=== PATIENT | male | born 1975 | race Caucasian/White ===

== ENCOUNTER 2021-09-11 12:27 | Outpatient (CLI) | payer OTHER, SELFPAY | END 2021-09-11 12:28 | disposition home or self-care (01) | LOC: ANHSURGERY 12:29 | PROVIDERS: PCP Family Medicine; Visit Provider Surgery | DX: K42.9 Umbilical hernia without obstruction or gangrene (principal); Z01.818 Encounter for other preprocedural examination | CPT/HCPCS: 36415; 86850; 86900; 86901 ==

== ENCOUNTER 2021-09-15 01:32 | Day surgery (SDC) | payer OTHER, SELFPAY ==
[2021-09-09 15:08] VITALS: BMI 26.0
--- NOTE | 2021-09-09 15:31 | PC.NURSE ---
Report to the Outpatient Waiting Room, entrance under the green pavilion located off [facility], at time 6:00 on date 09/15/21. OR Time: 7:30. - You and your visitor will be asked a series of questions to screen for COVID 19 for your protection. - A mask is required within the hospital. - Only one visitor is allowed at this time. Patient visitors will be guided where to wait when not with patient. Preoperative COVID Testing Requirements: No COVID Test needed if: (proof is required; if not received patient will have Rapid Test prior to entry) - Patient has received COVID Vaccine at least 14 days prior to procedure date or - Patient has positive COVID test result within last 90 days of surgery date. COVID Test needed if above criteria is not met If not COVID vaccinated a COVID test must be conducted within 72 hours of surgery and patient is asked to isolate self from time of testing until procedure. You will go to the [facility] for your COVID testing. The [facility] is located at the corner of [address] [facility]. You will only be called if COVID results are positive and your surgeon may reschedule your elective surgery date. Patients may have clear liquids (water, carbonated beverages, clear teas, apple juice) until 3 hours prior to surgery with a maximum of 20 ounces. - No food from midnight until time of surgery - Infants may have breast milk until 4 hours before surgery, formula 6 hours prior to surgery. - Children will be allowed to drink immediately following surgery. If applicable, please bring a bottle or sippy cup to assist with drinking. Juice, water, soda, and popsicles are readily available. For infants on formula, please bring formula the day of surgery. Pacifiers are allowed. Take the following medications with a SIP of water the morning of surgery: N/A Medications to discontinue per physician VITAMINS/SUPPLEMENTS Date to take last dose: 3 DAYS PRE-OP Please no make-up, nail amharic, hairspray, perfume, deodorant, or body powder the day of surgery. No jewelry (including any body piercings) or valuables the day of surgery, leave them at home. Please take a shower or bath the night before, or the morning of, surgery with an antibacterial soap. Wear comfortable, loose fitting clothing. Children are encouraged to wear pajamas. HIBICLENS SHOWER - Jewelry must be removed prior to entering the operating room. Rings and piercings that are not removed may be cut off. - The hospital will not accept responsibility for valuables. - Please leave all valuables, including medications, at home the day of surgery. If you are going home after surgery, a licensed clark driver must drive you home. - NO public transportation without another adult. - We recommend that an adult stay with you for 24 hours following discharge. - We also recommend that you do not drive, make important decision, drink alcoholic beverages, or take any drugs that were not prescribed by your health care provider for at least 24 hours after your discharge time. For Pediatric surgeries, we recommend two adults accompany the child home (only one inside the building at this time). Follow any additional instructions given to you from your surgeon. Telephone instructions given to NETTIE HDZ and asked if any additional questions and then verbalized understanding. Patient advised to call surgeon office or pre surgery nurse liaison [phone] if any additional questions.
[2021-09-15] VITALS (7 sets, daily range): BP systolic 127–149; BP diastolic 69–87; PULSE 38–50; RESP 10–16; TEMP 36.1–36.2; O2SAT 98–100
--- NOTE | 2021-09-15 07:04 | PM.HPGS ---
History of Present Illness History of Present Illness Consent: Risks, benefits, and alternatives have been discussed and questions answered. Patient agrees to proceed with procedure. Chief complaint: Umbilical Hernia Narrative: Aldair Gay Jr. is a 46 year old male that recently presented to the office at the request of Dr Shetty for an evaluation of a umbilical hernia. Patient reports that he noticed bulging with occasional discomfort with some skin color changes for about the last 5 years. HE reports he has always had an outie umbilicus as long has he can recall but over time it has become larger. He reports he has lost some weight on purpose in the last year. He reports that he can reduce the hernia by routine constantly. He reports overall the hernia does not cause much of a problem other than he has known it is getting larger and would like to have this repaired before it becomes urgent. He reports he has never had any abdominal surgeries in the past. He reports that he does have BENIGNO that he uses a CPAP for. Review of Systems Constitutional: Constitutional: Reports no additional constitutional complaints, Reports fatigue and Denies malaise Eyes: Eyes: Denies change in vision and Denies loss of vision ENT: Reports Normal hearing present, Denies change in voice, Denies dizziness, Denies hoarseness and Denies sore throat Cardiovascular: Cardiovascular: Denies chest pain, Denies leg edema and Denies dyspnea Respiratory: Respiratory: Denies cough, Denies dyspnea and Denies wheezing Comments: Reports obstructive sleep apnea and does use CPAP at home. Gastrointestinal: Gastrointestinal: Denies hematochezia, Denies change in bowel habits and Denies heartburn Genitourinary: Genitourinary: Denies urinary frequency and Denies urinary incontinence Neurologic: Reports Normal hearing present, Denies confusion, Denies dizziness, Denies loss of vision, Denies memory loss and Denies seizure-like activity Psychiatric: Psychiatric: Denies confusion, Denies depression and Denies memory loss Endocrine: Endocrine: Denies cold intolerance and Reports fatigue Hematologic/Lymphatic: Hematologic/Lymphatic: Denies easy bleeding and Denies easy bruising Allergic/Immunologic: Allergic/Immunologic: Denies wheezing PMFSH Past Medical History Medical History Alopecia Anxiety Asthma BMI 27.0-27.9,adult Elevated cholesterol with high triglycerides Sleep apnea with use of continuous positive airway pressure (CPAP) Umbilical hernia without mention of obstruction or gangrene Family History Family History Mother Family history of anemia Father Family history of diabetes mellitus in first degree relative Other Carcinoma of colon Diabetes mellitus Family history of allergic disorder Family history of malignant neoplasm Hypertension Social History Social History Smoking status: Never smoker Alcohol intake: current Drinks per week: 4 Substance use: never Substance use type: does not use Living arrangements: with family 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 Spiritual care concerns: No Meds Home Medications and Allergies Home Medications Medication Instructions Recorded Confirmed Type finasteride 1 mg tablet 1 mg PO DAILY #90 tablet 06/11/21 09/09/21 Rx glucosamine-chondroitin 500 mg-400 1 tablet PO DAILY 07/24/21 09/09/21 History mg tablet multivitamin 1 tablet PO DAILY 07/24/21 09/09/21 History omega-3 fatty acids 1,000 mg 1,000 mg PO DAILY 07/24/21 09/09/21 History capsule Allergies Allergy/AdvReac Type Severity Reaction Status Date / Time ragweed pollen Allergy Unknown Unknown Verified 09/15/21 07:15 shellfish derived AdvReac Mild Nausea and Verified 09/15/21 07:15 Vomiting 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
--- NOTE | 2021-09-15 07:17 | P.PNAN_ITS ---
Anes - Initial Pre Proc Eval Procedure: Operation Date: 09/15/21 07:30 Proposed Procedures p Laparoscopic Umbilical Hernia Repair With Mesh - Supa Joseph MD Date/Time: 09/15/21 07:17 Surgeon: Supa Joseph MD Pre Op Diagnosis: Umbilical Hernia Patient Data Age: 46 Gender: M Height: 1.8 m Weight: 84.82 kg Allergies Allergy/AdvReac Type Severity Reaction Status Date / Time ragweed pollen Allergy Unknown Unknown Verified 09/15/21 07:15 shellfish derived AdvReac Mild Nausea and Verified 09/15/21 07:15 Vomiting Home Medications Medication Instructions Recorded Confirmed Type finasteride 1 mg tablet 1 mg PO DAILY #90 tablet 06/11/21 09/09/21 Rx glucosamine-chondroitin 500 mg-400 1 tablet PO DAILY 07/24/21 09/09/21 History mg tablet multivitamin 1 tablet PO DAILY 07/24/21 09/09/21 History omega-3 fatty acids 1,000 mg 1,000 mg PO DAILY 07/24/21 09/09/21 History capsule Patient hx anesthesia problems: none Family hx anesthesia problems: none Results Review: All pre-operative results and documents have been reviewed as part of the pre-operative evaluation. [facility] Past Medical History Medical History Alopecia Anxiety Asthma BMI 27.0-27.9,adult Elevated cholesterol with high triglycerides Sleep apnea with use of continuous positive airway pressure (CPAP) Umbilical hernia without mention of obstruction or gangrene Family History Family History Mother Family history of anemia Father Family history of diabetes mellitus in first degree relative Other Carcinoma of colon Diabetes mellitus Family history of allergic disorder Family history of malignant neoplasm Hypertension Social History Social History Smoking status: Never smoker Alcohol intake: current Drinks per week: 4 Substance use: never Substance use type: does not use Living arrangements: with family 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 Informed Consent: The patient's anesthetic plan and its attendant risks and benefits were discussed with the patient/family/POA. Questions were solicited and answers provided to the satisfaction of the patient/family/POA.
[2021-09-15] MEDS: KETOROLAC 15 MG/ML VIAL (*BKC) IV PUSH (07:20)
[2021-09-15] MEDS: LACTATED RINGERS 1,000 ML 30 ML IV CONT (07:20)
[2021-09-15] MEDS: ACETAMINOPHEN 500 MG TABLET 1000 MG PO (07:20)
--- NOTE | 2021-09-15 07:21 | WPDHPUPDATE1 ---
History and Physical Update Update Date/Time: 09/15/21 07:21 History and Physical has been reviewed, including an updated exam of the patient. There are NO changes in the patient's condition. Risks, benefits, and alternatives have been discussed and questions answered. Patient agrees to proceed with procedure.
[2021-09-15] MEDS: ceFAZolin 2 GM/D5W 50 ML 2 GM/50 ML BAG IVPB (07:26)
[2021-09-15] MEDS: LIDO 2%/EPINEPHRINE 1:100,000 20 ML VIAL INFILTRATE (07:28)
--- NOTE | 2021-09-15 09:27 | W.PM.PROC2 ---
Procedure Note - Detailed Date of Procedure 09/15/21 Pre-op Diagnosis Umbilical Hernia Post-op Diagnosis same Procedure Performed Laparoscopic umbilical hernia repair with mesh Surgeon Supa Joseph MD Pta Brooke ROBERTS, [place] assistant family teacher Anesthesia general Indications See admission H&P. The patient was having increasing discomfort and enlargement of an umbilical hernia. Findings Some fat off the transverse colon was adhered to the underside of the umbilical hernia otherwise normal appearing intra-abdominal anatomy. Description of Procedure DESCRIPTION OF PROCEDURE: The patient was placed in the supine position on the operative table and after induction of adequate general endotracheal anesthesia by Hua Anesthesia, the entire abdomen was prepped and draped in usual sterile fashion and the head placed slightly up. An Ioban drape was used to prevent contact of the mesh with the skin during this clean case. Following this, local anesthetic was placed and a spot selected about two fingerbreadths below the costal margin on the left and a small incision made after instilling local anesthetic using 0.25% Xylocaine with epinephrine. Following this, a Veress needle technique using the water drop test was completed. Using 2 towel clips on the skin, I carefully elevated the skin and then passed the Veress needle into the abdomen and we could see that the saline dropped through the Veress needle easily. CO2 gas was connected and the abdomen was insufflated to 15 mm Hg pressure. Following this, the 0 degree 5 mm laparoscope was placed inside a 5 mm trocar, which was carefully twisted into the abdomen without difficulty, seeing a open pneumoperitoneum as we entered. Thus, the trocar was removed, the sleeve confirmed to be nicely within the abdomen, and we carefully inspected the anterior abdomen. Careful inspection of the abdomen revealed no inguinal hernias. A defect in the umbilicus that was actually difficult to see initially but I could see some fat that was hanging off the transverse colon extending up into the umbilical defect. After placing a 12 mm port in the left lower quadrant under direct vision with the laparoscope, we could see up into an estimated 25 mm defect. There was no incarceration of any bowel but there was the adhesions to the underside of the umbilicus as described above. There was some preperitoneal fat from the area of the falciform coming up into the area which might inhibit the tacks that I was planning to place through the mesh, therefore this was taken down with Bovie cautery on laparoscopic scissors. there was also some preperitoneal fat along the midline extending up to the falciform ligament. I also took this down and removed that preperitoneal fat. (this was sent for pathology). This was considered pre-peritoneal fat and it was removed from the abdomen and passed off the field as specimen. Following this, we carefully planned by measuring the defect. Our mesh, a circular 11 cm piece of Venta-lite mesh was chosen, so that we would have 3.5 cm of overlap in all directions over the circular umbilical defect. Following this, the ventra-lite balloon hernia system mesh was rolled and this was inserted through the LLQ 12 mm port after rolling it to protect the absorbable covering on the downside of the mesh. A black silk suture was placed through the blue system a loop that is used to extract the tubing for the balloon positioning system such that I could grab this and pull it up through the umbilical area with the suture Passer. I used the suture passer after making a small opening with an 11 blade knife, after placing local anesthetic directly in the center of the umbilicus. The suture passer was used to grasp this centering silk stitch on the piece of mesh, and this was pulled up, centering it. Then I inflated the balloon system which brought the mesh up against the anterior abdominal wall centering it nicely w
--- NOTE | 2021-09-15 09:35 | SUR.PHASEI ---
0933 simple mask removed.
== END 2021-09-15 10:58 | disposition home or self-care (01) ==
PROVIDERS: PCP Family Medicine; Visit Provider Surgery
PROC: (CPT 49652; principal; 2021-09-15 07:30)
DX: K42.9 Umbilical hernia without obstruction or gangrene (principal); K66.0 Peritoneal adhesions (postprocedural) (postinfection); L65.9 Nonscarring hair loss, unspecified; M19.90 Unspecified osteoarthritis, unspecified site; J45.909 Unspecified asthma, uncomplicated; E78.2 Mixed hyperlipidemia; G47.30 Sleep apnea, unspecified
CPT/HCPCS: 49652; 36415; 86850; 86900; 86901; 88304; A9270; C1781; J0690; J1100; J1885; J2250; J2270; J2405; J2704; J2710; J7030; J7120

== ENCOUNTER 2023-08-04 21:59 | Observation (INO) | payer OTHER, SELFPAY ==
--- NOTE | ~2023-08-04 | XR_ITS ---
EXAMINATION: XR knee LT min 4V DATE: 08/04/2023 22:30 INDICATION: Left knee pain TECHNIQUE: Four views of the left knee were obtained. COMPARISON: None. FINDINGS: Alignment is normal. No fracture or osteochondral lesion. Joint spaces are normal with no e rosions. No joint effusion/synovitis. There is prepatellar soft tissue swelling of the knee. IMPRESSION: 1. Prepatellar soft tissue swelling of the knee without acute osseous abnormality. Reviewed, dictated and finalized at location F. IMPRESSION: 1. Prepatellar soft tissue swelling of the knee without acute osseous abnormali ty.
[2023-08-04 22:02] VITALS: BP 153/82; PULSE 88; RESP 15; TEMP 37.9; O2SAT 99
[2023-08-04] MEDS: ACETAMINOPHEN 500 MG TABLET 1000 MG PO (23:00)
[2023-08-04 23:05] LABS: Basophils Percent Auto 0.3 % (0.2-1.2); Eosinophils Absolute Auto 0.2 K/mm3 (0-0.3); Eosinophils Percent Auto 1.7 % (0-4.4); Hematocrit 41.2 % (42.0-52.0); Hemoglobin 13.9 g/dL (14.0-18.0); Immature Granulocyte Absolute 0.04 K/mm3 (0.00-0.031); Immature Granulocyte Percent A 0.4 % (0-0.5); Lymphocytes Percent Auto 20.8 % (18.3-44.2); Mean Corpuscular HGB Conc 33.7 g/dl (32-36); Mean Corpuscular Hemoglobin 30.8 pg (26-34); Mean Corpuscular Volume 91.2 fl (80-100); Mean Platelet Volume 10.3 fl (7.4-10.4); Monocytes Absolute Auto 1.4 K/mm3 (0.1-0.6); Monocytes Percent Auto 12.2 % (2.6-8.5); Neutrophils Absolute Auto 7.1 K/mm3 (1.3-6.7); Neutrophils Percent Auto 64.6 % (45.5-73.1); Platelet Count Result 209 k/mm3 (150-375); Red Blood Count 4.52 M/mm3 (4.6-6.20); Red Cell Distribution Width 12.1 % (11.5-14.5)
[2023-08-04 23:16] LABS: Lactic Acid Reflex 0.9 mmol/L (0.7-2.0)
[2023-08-04 23:17] LABS: Alanine Aminotransferase 48 U/L (6-50); Albumin Level 4.3 g/dL (3.5-5.1); Alkaline Phosphatase 75 U/L (38-126); Anion Gap 8 mmol/L (8-16); Aspartate Amino Transferase 30 U/L (17-59); Blood Urea Nitrogen 17 mg/dL (9-20); CRP 4.6 mg/dL (<1.0); Calcium 8.7 mg/dL (8.4-10.2); Carbon Dioxide 26 mmol/L (22-30); Chloride 103 mmol/L (98-107); Estimated CRCL calculation 79 ml/min; Estimated Glomerular Filt Rate > 60; Glucose 97 mg/dL (65-110); Potassium 3.9 mmol/L (3.4-5.0); Sodium 137 mmol/L (137-145)
[2023-08-04 23:38] VITALS: BP 142/90; PULSE 78; RESP 18; TEMP 37.6; O2SAT 99
--- NOTE | 2023-08-04 23:38 | ED.GENADULT ---
HPI - General Adult General Chief complaint: Skin/Abscess/Foreign Body Stated complaint: wound to knee Time Seen by Provider: 08/04/23 22:16 Source: patient Mode of arrival: ambulatory Limitations: no limitations History of Present Illness HPI narrative: Patient is a 48-year-old male who presents to the ED with report of left knee pain and swelling. Patient reports he sustained a few small scabs from a softball injury last week. He was working on his friends home gym yesterday and doing reverse lunges. He hit his left knee against the ground and broke open one of the scabs on his anterior knee. Later last night, patient began noticing swelling and redness of the anterior knee. He also reported that the knee began feeling very stiff. He went to bed and woke up feeling slightly better. Throughout the day today, he has developed recurrent stiffness and pain in his left knee and warmth to the anterior knee. He also began to feel unwell with fevers and chills while at work, which prompted his presentation. Related Data Home Medications Medication Instructions Recorded Confirmed glucosamine-chondroitin 500 mg-400 1 tablet PO DAILY 07/24/21 04/07/23 mg tablet multivitamin 1 tablet PO DAILY 07/24/21 04/07/23 omega-3 fatty acids 1,000 mg 1,000 mg PO DAILY 07/24/21 04/07/23 capsule (Fish Oil Concentrate) Allergies Allergy/AdvReac Type Severity Reaction Status Date / Time ragweed pollen Allergy Unknown Unknown Verified 08/04/23 22:19 shellfish derived AdvReac Mild Nausea and Verified 08/04/23 22:19 Vomiting Review of Systems Review of Systems: CONSTITUTIONAL: Denies fever, chills, or sweats. SKIN: See HPI. MUSCULOSKELETAL: See HPI. NEUROLOGIC: Denies headache, numbness, or weakness. All systems reviewed & are unremarkable except as noted in HPI and below PMFSH Past Medical History Medical History Alopecia Anxiety Asthma BMI 27.0-27.9,adult Elevated cholesterol with high triglycerides Screening for prostate cancer Sleep apnea with use of continuous positive airway pressure (CPAP) Umbilical hernia without mention of obstruction or gangrene Surgical History Surgical History S/P laparoscopic hernia repair umbilical hernia w mesh 09/15/21 Family History Family History Mother Family history of anemia Father Family history of diabetes mellitus in first degree relative Diabetes mellitus Sibling No problems noted. Other Carcinoma of colon Family history of allergic disorder Family history of malignant neoplasm Hypertension Social History Social History Smoking status: Never smoker Second hand tobacco smoke exposure: Yes Alcohol intake: current Drinks per week: 4 Substance use: never Substance use type: does not use Lack of Transportation: No Lack of Food: Never True Current Housing: I Have Housing Concerned About Future Housing: No Difficulty Paying Gas/Electric Bills: No Difficulty Paying for Meds: No Currently Unemployed: No Education: Associate Degree Living arrangements: with family Occupation/Education: occupation Additional occupation/education comments: 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 Spiritual care concerns: No Exam Narrative: GENERAL: Well appearing, well-nourished, non-toxic, in no acute distress. HEAD: Normocephalic, atraumatic. NECK: Supple. No adenopathy, no masses. RESPIRATORY: Airway patent, respirations nonlabored. Clear to auscultation bilaterally, no rales, rhonchi, wheezing. CARDIOVASCULAR: Regular rate and rhythm without murmurs, rubs, or gallops. Pedal pulses 2+ and equal bilaterally. MUSCULOSKELETAL: Moves all extremities. Essentially full flexion and extension ROM
[2023-08-04 23:40] LABS: Erythrocyte Sedimentation Rate 17 mm/hr (0-20)
[2023-08-05 02:04] VITALS: BP 129/86; PULSE 78; RESP 20; O2SAT 98
--- NOTE | 2023-08-05 02:09 | ADMGEN ---
This patient, Aldair Gay Jr., was admitted to -. Patient/family oriented to hospital policies and general routines including ID bracelet, bed and alarms, visiting hours, pain management, procedures, bathroom and other care routines, personal items, smoking policy, room service/diet, and visiting hours. Information on how to activate the Rapid Response Team has been discussed. Patient/Family are encouraged to report perceived risks to care and to ask questions if they do not understand what they are told or what they should do.
[2023-08-05 02:10] VITALS: BP 152/91; PULSE 82; RESP 14; TEMP 36.9; O2SAT 99
--- NOTE | 2023-08-05 04:24 | PM.IMHP ---
H&P: HPI History of Present Illness Date/Time: 08/05/23 04:24 Chief Complaint: Left knee pain Narrative: 48-year-old male with a past medical history of obstructive sleep apnea and chronic hair loss who presented to the ER with 2 days of left knee pain. The patient reports that last week he was playing softball and slid into the base. He cleanse the wound and did not have any issues. Then on Wednesday he was working out at a friend's house in the garage doing lunges. He scraped his leg against the ground and knocked 1 of the scabs off of his knee. He went home and showered. He then went to work. After sitting at his desk at work for several hours his leg did become more stiff. Later that night he noticed some a little bit of swelling. Then on the he noticed some erythema to the knee and some warmth. He began to feel as if he was coming down with something. He just felt generally unwell. He was having subjective fevers and chills. On arrival to the ER he had a temperature of a 100.2?. Imaging per performed demonstrated thickening of the anterior subcutaneous tissues. The patient reports that he can extend the knee fully and he he can bend the knee up at a good angle but states that it just feels stiff. He denies any nausea or vomiting. He denies any history of recurrent infections. Review of Systems Review of Systems: Review of systems was completed with pertinent positives and negatives listed above PMFSH Past Medical History Medical History Alopecia Anxiety Asthma Elevated cholesterol with high triglycerides Sleep apnea with use of continuous positive airway pressure (CPAP) Surgical History Surgical History S/P laparoscopic hernia repair umbilical hernia w mesh 09/15/21 Family History Family History (Updated 08/05/23 @ 06:43 by Mae Paul DO) Mother Family history of anemia Father Diabetes mellitus Hypertension Sibling No problems noted. Grandparent Carcinoma of colon Other Family history of allergic disorder Social History Social History (Updated 08/05/23 @ 06:44 by Mae Paul DO) Social History: The patient lives with his of 17 years they are 3 biological children and 1 foster child. 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 He drinks 2 or 3 alcoholic beverages every couple weeks. He denies any illicit substance use. 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 Spiritual care concerns: No Meds Home Medications and Allergies Home Medications Medication Instructions Recorded Confirmed Type multivitamin 1 tablet PO DAILY 07/24/21 08/05/23 History finasteride 1 mg tablet 1 mg PO DAILY #90 tabs 06/29/23 08/05/23 Rx Allergies Allergy/AdvReac Type Severity Reaction Status Date / Time ragweed pollen Allergy Unknown Unknown Verified 08/04/23 22:19 shellfish derived AdvReac Mild Nausea and Verified 08/04/23 22:19 Vomiting Vital Signs Vital Signs - 24 hr 08/04/23 22:02 08/04/23 23:38 08/05/23 02:04 Temperature 100.2 F H 99.6 F Pulse Rate 88 78 78 Respiratory Rate 15 18 20 Blood Pressure 153/82 H 142/90 H 129/86 Pulse Oximetry 99 99 9
[2023-08-05 05:01] VITALS: BP 138/84; PULSE 77; RESP 16; TEMP 36.9; O2SAT 99
[2023-08-05 07:49] LABS: Basophils Percent Auto 0.4 % (0.2-1.2); Eosinophils Absolute Auto 0.3 K/mm3 (0-0.3); Hematocrit 44.4 % (42.0-52.0); Hemoglobin 14.5 g/dL (14.0-18.0); Immature Granulocyte Absolute 0.04 K/mm3 (0.00-0.031); Immature Granulocyte Percent A 0.4 % (0-0.5); Lymphocytes Absolute Auto 2.46 K/mm3 (0.9-3.2); Lymphocytes Percent Auto 23.9 % (18.3-44.2); Mean Corpuscular HGB Conc 32.7 g/dl (32-36); Mean Corpuscular Hemoglobin 30.6 pg (26-34); Mean Corpuscular Volume 93.7 fl (80-100); Mean Platelet Volume 10.3 fl (7.4-10.4); Monocytes Absolute Auto 1.4 K/mm3 (0.1-0.6); Monocytes Percent Auto 13.4 % (2.6-8.5); Neutrophils Absolute Auto 6.1 K/mm3 (1.3-6.7); Neutrophils Percent Auto 58.9 % (45.5-73.1); Platelet Count Result 217 k/mm3 (150-375); Red Blood Count 4.74 M/mm3 (4.6-6.20); White Blood Count 10.3 K/mm3 (4.5-10.0)
--- NOTE | 2023-08-05 09:30 | PC.NURSE ---
Patient refuses lovenox at this time. HE states he is ambulating in the room.
--- NOTE | 2023-08-05 12:16 | PM.CNOR ---
Assessment and Plan Assessment and plan (1) Cellulitis of left knee: Code(s): L03.116 - Cellulitis of left lower limb Status: Acute Plan 48-year-old male with cellulitis anterior portion left and lower leg. He was started on vancomycin but I am going to switch of Ancef because it is probably going to give better coverage for skin organisms. Once the redness has receded he should be able to be switched to an oral cephalosporin and sent home. Discussed fully with patient and his . Thank you for the consultation. History of Present Illness HPI Consult date: 08/05/23 Chief complaint: Infected Prepatellar Bursitis L Knee Narrative: This document created with [id number] technology and is subject to coagulator irregularities. 48-year-old male was admitted overnight with cellulitis overlying his left knee. His history is significant for played softball was two weeks ago and while playing slid giving himself a pretty extensive road rash on his left leg and left arm. More recently while working out he struck his knee and this was followed by swelling and erythema over the anterior portion of the left knee. Came to the ER last night and was admitted to be placed on IV antibiotics. No other issues. Otherwise a healthy individual by his report. Review of Systems Constitutional: Constitutional: Reports no additional constitutional complaints Integumentary/Breasts: Skin/Breast: Reports system reviewed and no additional complaints, except as docu [facility] Past Medical History Medical History (Updated 08/05/23 @ 12:20 by Lauro Garcia MD) Alopecia Anxiety Asthma Cellulitis of left knee July 2023 Elevated cholesterol with high triglycerides Sleep apnea with use of continuous positive airway pressure (CPAP) Surgical History Surgical History S/P laparoscopic hernia repair umbilical hernia w mesh 09/15/21 Family History Family History Mother Family history of anemia Father Diabetes mellitus Hypertension Sibling No problems noted. Grandparent Carcinoma of colon Other Family history of allergic disorder Social History Social History Social History: The patient lives with his of 17 years they are 3 biological children and 1 foster child. 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 He drinks 2 or 3 alcoholic beverages every couple weeks. He denies any illicit substance use. 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 Spiritual care concerns: No Meds Home Medications and Allergies Home Medications Medication Instructions Recorded Confirmed Type multivitamin 1 tablet PO DAILY 07/24/21 08/05/23 History finasteride 1 mg tablet 1 mg PO DAILY #90 tabs 06/29/23 08/05/23 Rx Allergies Allergy/AdvReac Type Severity Reaction Status Date / Time ragweed pollen Allergy Unknown Unknown Verified 08/04/23 22:19 shellfish derived AdvReac Mild Nausea and Verified 08/04/23 22:19 Vomiting Vital Signs Vital Signs - 24 hr 08/04/23 22:02 08/04/23 23:38 08/05/23 02:04 Temperature 100.2 F H 99.6 F Pulse Rate 88 78 78 R
[2023-08-05] MEDS: ceFAZolin 2 GM/D5W 50 ML 2 GM/50 ML BAG IVPB ×2 (13:52→21:06)
[2023-08-05 14:00] VITALS: BP 153/81; PULSE 80; RESP 16; TEMP 36.5; O2SAT 99
--- NOTE | 2023-08-05 15:06 | PM.IMPN ---
Progress Note: A&P Assessment and Plan (1) Cellulitis of left knee: Code(s): L03.116 - Cellulitis of left lower limb Status: Acute Assessment and Plan: Patient has cellulitis of the skin of skin overlying the knee. He did have a low-grade fever but no other markers of sepsis. Vancomycin initially given but then transition to Ancef per orthopedic team. Orthopedic surgery consulted MRSA screen pending. Blood culture pending Continue to monitor labs. (2) Sleep apnea with use of continuous positive airway pressure (CPAP): Code(s): G47.30 - Sleep apnea, unspecified Status: Acute Assessment and Plan: Patient does have longstanding obstructive sleep apnea. CPAP has been ordered. Subjective Date/time seen: 08/05/23 15:06 Interval history: Patient doing well and states he feels as if knee is improving. He denies any body aches, fevers, chills, chest pain, shortness a breath, nausea vomiting. Mobility has improved in his left knee. Erythema has not moved be on worker borders. Vancomycin deescalated to Ancef. Blood cultures Pending Exam Narrative: GENERAL: Comfortable, no acute distress HENMT: moist mucous membranes EYES: EOM intact b/l NECK: no lymphadenopathy RESPIRATORY: clear to auscultation CARDIO: RRR GI: soft, nontender, bowel sounds present SKIN: no rashes EXTREMITIES: left knee erythema with warmth. No significant tenderness or edema. Erythema not moving beyond marker borders. Objective Data Vital Signs Vital Signs: Vital Signs - 24 hr 08/04/23 22:02 08/04/23 23:38 08/05/23 02:04 Temperature 100.2 F H 99.6 F Pulse Rate 88 78 78 Respiratory Rate 15 18 20 Blood Pressure 153/82 H 142/90 H 129/86 Pulse Oximetry 99 99 98 Oxygen Delivery Room Air 08/05/23 02:10 08/05/23 05:01 Temperature 98.4 F 98.4 F Pulse Rate 82 77 Respiratory Rate 14 16 Blood Pressure 152/91 H 138/84 Pulse Oximetry 99 99 Oxygen Delivery Intake/Output Intake/Output: Intake & Output 08/02/23 08/03/23 08/04/23 08/05/23 23:59 23:59 23:59 23:59 Intake Total 980 Balance 980 Meds/Results Medications: Active Medications Generic Name Dose Route Start Last Admin Trade Name Freq PRN Reason Stop Dose Admin Acetaminophen 650 mg 08/05/23 01:37 Acetaminophen 325 Mg Tablet PO Q4H PRN Mild Pain (1-3) or Fever Enoxaparin Sodium 40 mg 08/05/23 09:00 08/05/23 09:30 Enoxaparin 40 Mg/0.4 Ml Syringe SUB-Q Not Given DAILY JOHN Cefazolin Sodium 2 gm in 50 mls @ 100 mls/hr 08/05/23 14:00 08/05/23 13:52 Ancef 2 Gm/D5w 50 Ml IVPB 100 mls/hr Q8HR JOHN Administration Morphine Sulfate 4 mg 08/05/23 01:37 Morphine Sulfate (*Crx) 4 Mg/Ml Inj IV PUSH Q2H PRN Pain Rated 7-10 Radiology Results: ITS Impressions Knee X-Ray 08/04/23 22:36 IMPRESSION: 1. Prepatellar soft tissue swelling of the knee without acute osseous abnormality. Labs Labs: Laboratory Results - last 24 hr 08/04/23 08/05/23 22:58 07:41 WBC 11.0 H 10.3 H RBC 4.52 L 4.74 Hgb 13.9 L 14.5 Hct 41.2 L 44.4 MCV 91.2 93.7 MCH 30.8 30.6 MCHC 33.7 32.7 RDW 12.1 12.0 Plt Count 209 217 MPV 10.3 10.3 Immature Gran % (Auto) 0.4 0.4 Neut % (Auto) 64.6 58.9 Lymph % (Auto) 20.8 23.9 [place] % (Auto) 12.2 H 13.4 H Eos % (Auto) 1.7 3.0 Baso % (Auto) 0.3 0.4 Lymph # (Auto) 2.30 2.46 [place] # (Auto) 1.4 H 1.4 H Eos # (Auto) 0.2 0.3 Baso # (Auto) 0.0 0.0 Abs Immat Gran (auto) 0.04 H 0.04 H Absolute Neuts (auto) 7.1 H 6.1 Absolute Nucleated RBC 0.0 0.0 Nucleated RBC % 0.0 0.0 ESR 17 Sodium 137 Potassium 3.9 Chloride 103 Carbon Dioxide 26 Anion Gap 8 BUN 17 Creatinine 1.10 Estim Creat Clear Calc 79 Estimated GFR > 60 Glucose 97 Lactic Acid 0.9 Calcium 8.7 Total Bilirubin 1.0 AST 30 ALT 48 Alkaline Phosphatase 75 C-Reactive Protein 4.6 H To
[2023-08-05 21:12] VITALS: BP 153/83; PULSE 79; RESP 18; TEMP 37; O2SAT 98
[2023-08-05 21:45] VITALS: PULSE 75; O2SAT 98
[2023-08-06] MEDS: ceFAZolin 2 GM/D5W 50 ML 2 GM/50 ML BAG IVPB (05:15)
[2023-08-06 05:18] VITALS: BP 129/73; PULSE 74; RESP 18; TEMP 36.6; O2SAT 99
[2023-08-06 05:42] LABS: Basophils Absolute Auto 0.1 K/mm3 (0.0-0.1); Basophils Percent Auto 0.6 % (0.2-1.2); Eosinophils Absolute Auto 0.4 K/mm3 (0-0.3); Eosinophils Percent Auto 4.3 % (0-4.4); Hematocrit 44.5 % (42.0-52.0); Hemoglobin 14.7 g/dL (14.0-18.0); Immature Granulocyte Absolute 0.04 K/mm3 (0.00-0.031); Immature Granulocyte Percent A 0.4 % (0-0.5); Lymphocytes Absolute Auto 2.73 K/mm3 (0.9-3.2); Lymphocytes Percent Auto 30.3 % (18.3-44.2); Mean Corpuscular Hemoglobin 30.9 pg (26-34); Mean Corpuscular Volume 93.5 fl (80-100); Mean Platelet Volume 10.1 fl (7.4-10.4); Monocytes Absolute Auto 0.9 K/mm3 (0.1-0.6); Monocytes Percent Auto 10.3 % (2.6-8.5); Neutrophils Absolute Auto 4.9 K/mm3 (1.3-6.7); Neutrophils Percent Auto 54.1 % (45.5-73.1); Platelet Count Result 225 k/mm3 (150-375); Red Blood Count 4.76 M/mm3 (4.6-6.20); Red Cell Distribution Width 11.9 % (11.5-14.5)
[2023-08-06 05:54] LABS: Alanine Aminotransferase 51 U/L (6-50); Alkaline Phosphatase 67 U/L (38-126); Anion Gap 8 mmol/L (8-16); Aspartate Amino Transferase 37 U/L (17-59); Bilirubin,Total 0.8 mg/dL (0.2-1.3); Blood Urea Nitrogen 13 mg/dL (9-20); Calcium 8.6 mg/dL (8.4-10.2); Carbon Dioxide 23 mmol/L (22-30); Chloride 104 mmol/L (98-107); Estimated CRCL calculation 95 ml/min; Estimated Glomerular Filt Rate > 60; Glucose 109 mg/dL (65-110); Potassium 4.5 mmol/L (3.4-5.0); Sodium 135 mmol/L (137-145)
--- NOTE | 2023-08-06 10:23 | PM.PNORT ---
Progress Note: A&P Assessment and Plan (1) Cellulitis of left knee: Code(s): L03.116 - Cellulitis of left lower limb Status: Acute Assessment and Plan: Patient has superficial cellulitis overlying the knee. He has been on IV Ancef. MRSA screen and blood cultures are pending. Since he still has redness over the patella it would be reasonable for him to continue on IV antibiotics throughout the day. This would give him 48 hours of IV antibiotics. Reassess in the morning and likely discharge home with oral antibiotics after that. He was informed of this plan. He will also plan to follow-up in our office in 1 month for recheck. Subjective Subjective Date/Time Seen: 08/06/23 10:23 Interval history: 48-year-old male with cellulitis of the left lower extremity. Redness is regressing and has not advance past the borders that had been marked over the knee. Still has some redness over the patella with some warmth to touch. No fevers or chills. Overall feeling much better. He has full range of motion throughout the knee without irritability. Review of Systems Constitutional: Constitutional: Reports no additional constitutional complaints Integumentary/Breasts: Skin/Breast: Reports system reviewed and no additional complaints, except as docu Exam Const: General: alert and awake; No acute distress Orientation/consciousness: patient oriented x3 HENMT: Head: normal to inspection Ears: hearing grossly normal bilaterally Face/Nose/Sinus: normal facial exam Face and sinus: normal facial exam Mouth: Yes moist mucous membranes Eyes: General: appearance normal, both eyes and all related structures Resp: Effort & Inspection: normal respiratory effort and able to speak in complete sentences GI: Inspection: non-distended Rectal Exam: deferred Neuro: General: patient oriented x3 and moves all extremities Cognition (Neuro): normal cognition Speech: normal speech Extrem: Other: Exam of left knee reveals full motion with irritability and the anterior compartment at end range of flexion. Knee is stable. He has got swelling anteriorly over the prepatellar region but it is not tense. Has got cellulitis which has been demarcated. Has not extended beyond the line and is starting to regress but there is still some redness over the patella. Left lower extremity exam otherwise unremarkable. Neurovascular status left lower extremity intact. Has got scabbing consistent with healing abrasions distal to the knee. Psych: Appearance: grossly normal Mental Status: mental status grossly normal Objective Data Vital Signs Vital Signs: Vital Signs - 24 hr 08/05/23 14:00 08/05/23 21:12 08/05/23 21:45 Temperature 97.7 F 98.6 F Pulse Rate 80 79 75 Respiratory Rate 16 18 Blood Pressure 153/81 H 153/83 H Pulse Oximetry 99 98 98 Oxygen Delivery Autopap 08/06/23 05:18 Temperature 97.8 F Pulse Rate 74 Respiratory Rate 18 Blood Pressure 129/73 Pulse Oximetry 99 Oxygen Delivery Intake/Output Intake/Output: Intake & Output 08/03/23 08/04/23 08/05/23 08/06/23 23:59 23:59 23:59 23:59 Intake Total 2560 200 Balance 2560 200 Meds/Results Medications: Active Medications Generic Name Dose Route Start Last Admin Trade Name Freq PRN Reason Stop Dose Admin Acetaminophen 650 mg 08/05/23 01:37 Acetaminophen 325 Mg Tablet PO Q4H PRN Mild Pain (1-3) or Fever Enoxaparin Sodium 40 mg 08/05/23 09:00 08/05/23 09:30 Enoxaparin 40 Mg/0.4 Ml Syringe SUB-Q Not Given DAILY JOHN Cefazolin Sodium 2 gm in 50 mls @ 100 mls/hr 08/05/23 14:00 08/06/23 05:45 Ancef 2 Gm/D5w 50 Ml IVPB Infused Q8HR JOHN Infusion Morphine Sulfate 4 mg 08/05/23 01:37 Morphine Sulfate (*Crx) 4 Mg/Ml Inj IV PUSH Q2H PRN Pain Rated 7-10 Radiology Results: ITS Impressions Knee X-Ray 08/04/23 22:36 IMPRESSION: 1. Prepatellar soft tissue swelling of the knee without acute
--- NOTE | 2023-08-06 11:49 | PM.DS ---
DS: Admitting Diagnosis Discharge Date 08/06/23 Admitting Diagnosis cellulitis DS: Discharge Diagnosis Discharge Diagnosis (1) Cellulitis of left knee: Code(s): L03.116 - Cellulitis of left lower limb Status: Acute Assessment and Plan: Patient has cellulitis of the skin of skin overlying the knee. He did have a low-grade fever but no other markers of sepsis. Vancomycin initially given but then transition to Ancef per orthopedic team. Orthopedic surgery consulted Blood culture no growth Continue to monitor labs. (2) Sleep apnea with use of continuous positive airway pressure (CPAP): Code(s): G47.30 - Sleep apnea, unspecified Status: Acute Assessment and Plan: Patient does have longstanding obstructive sleep apnea. CPAP has been ordered. DS: Summary Hospital Course Hospital Course: This is a 48-year-old male past medical history of obstructive sleep apnea the presented to the ED on 08/05/2023 due to 2 days of left knee pain. He had been playing softball when he slid into base and scraped up his left leg. A couple days later he had been working out when he scraped his leg against the ground knocking off 1 of his scabs. After that he developed swelling and redness of the left leg and knee. When he arrived to the ED he was found have a temperature of a 100.2?. Imaging performed revealing thickening of anterior septum continues tissues. Orthopedics consulted. He has really started on vancomycin that was then transition to Ancef per Orthopedics recommendation. After being on antibiotics his redness significantly improved and he was feeling much better. Blood cultures no growth to date but will continue to follow. Labs and vital signs are stable on his medically clear for discharge at this time. Time Spent with Patient Time attestation: Total time spent providing and/or coordinating discharge services: Exam Narrative: GENERAL: Comfortable, no acute distress HENMT: moist mucous membranes EYES: EOM intact b/l NECK: no lymphadenopathy RESPIRATORY: clear to auscultation CARDIO: RRR GI: soft, nontender, bowel sounds present SKIN: no rashes EXTREMITIES: left knee erythema. No significant tenderness or edema. Erythema not moving beyond marker borders. Erythema is much improved. There is a small amount of erythema noted on the kneecap but otherwise has completely regressed. Full range of motion in bilateral knees. DS: Data Data Completed and Pending Labs on day of discharge: Labs from last 24 hours 08/06/23 05:35 WBC 9.0 RBC 4.76 Hgb 14.7 Hct 44.5 MCV 93.5 MCH 30.9 MCHC 33.0 RDW 11.9 Plt Count 225 MPV 10.1 Immature Gran % (Auto) 0.4 Neut % (Auto) 54.1 Lymph % (Auto) 30.3 [place] % (Auto) 10.3 H Eos % (Auto) 4.3 Baso % (Auto) 0.6 Lymph # (Auto) 2.73 [place] # (Auto) 0.9 H Eos # (Auto) 0.4 H Baso # (Auto) 0.1 Abs Immat Gran (auto) 0.04 H Absolute Neuts (auto) 4.9 Absolute Nucleated RBC 0.0 Nucleated RBC % 0.0 Sodium 135 L Potassium 4.5 Chloride 104 Carbon Dioxide 23 Anion Gap 8 BUN 13 Creatinine 0.90 Estim Creat Clear Calc 95 Estimated GFR > 60 Glucose 109 Calcium 8.6 Total Bilirubin 0.8 AST 37 ALT 51 H Alkaline Phosphatase 67 Total Protein 8.0 Albumin 4.0 Preliminary micro results at discharge 08/05/23 01:54 Blood Culture - Preliminary Blood Discharge Plan Discharge Attending physician on discharge: Elton Padron Consulting providers: Lauro Garcia; Claire Suazo Discharging Clinician: Kristan Wade Patient Disposition: Home, Self-Care Activity: as tolerated Diet: regular Discharge Instructions: Return to the emergency department if: -your wound gets larger and more painful -you feel cracking under skin when you touch it. -you purple dots or bones under skin or you see bleeding under your skin. -you see red streaks coming from the infec
[2023-08-06 14:00] VITALS: BP 146/76; PULSE 69; RESP 16; TEMP 37; O2SAT 100
--- NOTE | 2023-08-12 08:55 | PC.NURSE ---
Blood culture is negative.
== END 2023-08-06 14:15 | disposition home or self-care (01) ==
LOC: ANHED 08-05 01:08 → ANH3MED 08-05 12:38
PROVIDERS: Internal Medicine Critical Care Medicine; Admitting Provider Internal Medicine; Emergency Provider Physician Assistant; PCP Family Medicine; Visit Provider Internal Medicine
DX: L03.116 Cellulitis of left lower limb (principal); M70.42 Prepatellar bursitis, left knee; D72.829 Elevated white blood cell count, unspecified; R79.82 Elevated C-reactive protein (CRP); F41.9 Anxiety disorder, unspecified; L65.9 Nonscarring hair loss, unspecified; J45.909 Unspecified asthma, uncomplicated; E78.2 Mixed hyperlipidemia; G47.33 Obstructive sleep apnea (adult) (pediatric); Z99.89 Dependence on other enabling machines and devices; Z79.899 Other long term (current) drug therapy; F10.90 Alcohol use, unspecified, uncomplicated
CPT/HCPCS: 36415; 73564; 80053; 83605; 85025; 85652; 86140; 87040; 87081; 96365; 96366; 96367; 99285; A9270; G0378; J0690; J3370

== ENCOUNTER 2024-01-15 16:14 | Emergency (ER) | payer OTHER, SELFPAY ==
--- NOTE | ~2024-01-15 | CT_ITS ---
EXAMINATION: CT chest abdomen pelvis w con DATE: 01/15/2024 17:56 INDICATION: Chest injury. TECHNIQUE: Computed tomography (CT) of the chest, abdomen, and pelvis was performed with 100 mL Omnip aque 350 intravenous contrast. Automated exposure control and iterative reconstruction technique were employed. The dose-length product was 1030.95 mGy-cm. COMPARISON: None FINDINGS: CHEST CT: There is mild scarring at the lung apices. There is mild atelectasis bilaterally. There is a 4 mm nod ule in the lingula, likely benign. No pleural effusion. There is normal. No pericardial effusion. The re is mild thoracic spondylosis. There are fractures of right seventh-10th ribs. ABDOMEN/PELVIS CT: The liver, gallbladder, spleen, pancreas, adrenal glands, and kidneys are normal. There is an umbilic al hernia containing fat. There are no dilated loops of bowel. The appendix is normal. There are no p athologically enlarged lymph nodes. There is no free intraperitoneal fluid. There is mild lumbar spon dylosis. IMPRESSION: 1. Acute fractures of right seventh-10th ribs. 2. Umbilical hernia containing fat. Reviewed, dictated and finalized at location E. AND POST SUPERINTENDENT
[2024-01-15 16:18] VITALS: BP 172/96; PULSE 56; RESP 20; TEMP 36.5; O2SAT 99
--- NOTE | 2024-01-15 16:30 | ED.FALL ---
HPI - Fall General Chief Complaint: Fall Stated Complaint: right sided rib pain Time Seen by Provider: 01/15/24 16:25 Source: patient and family Mode of arrival: ambulatory History of Present Illness HPI Narrative: 48 YEARS OLD WHITE MALE CAME TO THE EMERGENCY ROOM WITH HIS COMPLAINING OF FALLING WHILE WORKING ON qcue, FELL IN BETWEEN 2 OF THEM, ROUGHLY 4 FT ABOVE THE GROUND, HIT 1 OF THE BEAM BY THE RIGHT ABDOMEN AND RIGHT LOWER RIBS. TO HOUR PRIOR TO ARRIVAL TO THE EMERGENCY ROOM. HE DENIES HEAD INJURY OR OTHER INJURIES. Related Data Home Medications Medication Instructions Recorded Confirmed multivitamin 1 tablet PO DAILY 07/24/21 09/02/23 Allergies Allergy/AdvReac Type Severity Reaction Status Date / Time ragweed pollen Allergy Unknown Unknown Verified 09/02/23 10:33 shellfish derived AdvReac Mild Nausea and Verified 09/02/23 10:33 Vomiting Review of Systems Review of Systems: All systems reviewed & are unremarkable except as noted in HPI and below PMFSH Past Medical History Medical History Alopecia Anxiety Asthma Cellulitis of left knee July 2023 Elevated cholesterol with high triglycerides Sleep apnea with use of continuous positive airway pressure (CPAP) Surgical History Surgical History S/P laparoscopic hernia repair umbilical hernia w mesh 09/15/21 Family History Family History Mother Family history of anemia Father Diabetes mellitus Hypertension Sibling No problems noted. Grandparent Carcinoma of colon Other Family history of allergic disorder Social History Social History Social History: The patient lives with his of 17 years they are 3 biological children and 1 foster child. 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 He drinks 2 or 3 alcoholic beverages every couple weeks. He denies any illicit substance use. 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 Spiritual care concerns: No Exam Narrative: GENERAL APPEARANCE: WELL-DEVELOPED, WELL-NOURISHED SKIN: NORMAL COLOR HEAD: NORMOCEPHALIC, NONTRAUMATIC EYES: CLEAR CONJUNCTIVA ENT: OROPHARYNX NORMAL, EARS NORMAL, NOSE NORMAL NECK: SUPPLE, NONTENDER CHEST AND RESPIRATORY: AIRWAY PATENT, NO RESPIRATORY DISTRESS, NO ACCESSORY MUSCLE USE HEART: REGULAR RATE/RHYTHM ABDOMEN: DIFFUSE TENDERNESS, ABRASION, RIGHT MID ABDOMEN, RIGHT UPPER QUADRANT, RIGHT LOWER RIBS. VASCULAR: NORMAL PERIPHERAL PULSES, NORMAL CAPILLARY REFILL. MUSCULOSKELETAL: NORMAL RANGE OF MOTION, NONTENDER BACK NEUROLOGIC: ALERT AND ORIENTED ?3, CATIA DESIGNER IS NORMAL TESTED, NO GROSS MOTOR DEFICIT Course Vital Signs Vital signs: Vital Signs Temperature 36.5 C 01/15/24 16:18 Pulse Rate 56 L 01/15/24 16:18 Respiratory Rate 20 01/15/24
[2024-01-15] MEDS: HYDROmorphone HCL INJ (*CRX) 1 MG/ML SYR 0.5 MG IV PUSH (17:06)
[2024-01-15] MEDS: ONDANSETRON INJ 4 MG/2 ML VIAL IV PUSH (17:06)
[2024-01-15] MEDS: SODIUM CHLORIDE 0.9% IV 1,000 ML 999 ML IV CONT (17:07)
[2024-01-15 17:17] LABS: Appearance Urine Clear (Clear); Bacteria Urine None Seen /hpf; Bilirubin Urine Negative (Negative); Blood Urine 3+ (Negative); Color Urine Yellow (Yellow); Glucose Urine UA Negative (Negative); Ketones Urine Negative (Negative); Leukocyte Esterase Ur Negative LEU/UL (Negative); Nitrate Urine Negative (Negative); Non Pathogenic Casts 0-2; Protein Urine Negative (Negative); RBC Urine 51-100 /hpf (0-2); Specific Grav Ur 1.022 (1.001-1.035); Squamous Epithelial Cell Urine None seen /hpf (Few); Urobilinogen Urine 0.2 mg/dL (<2.0); WBC Urine 0-5 /hpf
[2024-01-15 17:24] LABS: Add Urine Microscopic? YES
[2024-01-15 17:27] LABS: Basophils Absolute Auto 0.1 K/mm3 (0.0-0.1); Basophils Percent Auto 0.3 % (0.2-1.2); Eosinophils Absolute Auto 0.2 K/mm3 (0-0.3); Eosinophils Percent Auto 1.1 % (0-4.4); Hematocrit 48.5 % (42.0-52.0); Hemoglobin 16.1 g/dL (14.0-18.0); Immature Granulocyte Absolute 0.08 K/mm3 (0.00-0.031); Immature Granulocyte Percent A 0.5 % (0-0.5); Lymphocytes Absolute Auto 2.23 K/mm3 (0.9-3.2); Lymphocytes Percent Auto 15.2 % (18.3-44.2); Mean Corpuscular HGB Conc 33.2 g/dl (32-36); Mean Corpuscular Hemoglobin 30.4 pg (26-34); Mean Corpuscular Volume 91.7 fl (80-100); Mean Platelet Volume 10.5 fl (7.4-10.4); Monocytes Absolute Auto 0.8 K/mm3 (0.1-0.6); Monocytes Percent Auto 5.7 % (2.6-8.5); Neutrophils Absolute Auto 11.3 K/mm3 (1.3-6.7); Neutrophils Percent Auto 77.2 % (45.5-73.1); Platelet Count Result 300 k/mm3 (150-375); Red Blood Count 5.29 M/mm3 (4.6-6.20); White Blood Count 14.6 K/mm3 (4.5-10.0)
[2024-01-15 17:31] LABS: Alanine Aminotransferase 87 U/L (6-50); Albumin Level 4.8 g/dL (3.5-5.1); Alkaline Phosphatase 88 U/L (38-126); Anion Gap 8 mmol/L (8-16); Aspartate Amino Transferase 66 U/L (17-59); Bilirubin,Total 0.7 mg/dL (0.2-1.3); Blood Urea Nitrogen 16 mg/dL (9-20); Calcium 9.9 mg/dL (8.4-10.2); Carbon Dioxide 28 mmol/L (22-30); Chloride 103 mmol/L (98-107); Estimated CRCL calculation 103 ml/min; Estimated Glomerular Filt Rate > 60; Glucose 106 mg/dL (65-110); Potassium 4.2 mmol/L (3.4-5.0); Sodium 139 mmol/L (137-145)
--- NOTE | 2024-01-15 17:44 | PC.NURSE ---
pt to CT scan at this time.
== END 2024-01-15 19:50 | disposition home or self-care (01) ==
PROVIDERS: Emergency Provider Emergency Medicine; PCP Family Medicine
DX: S22.41XA Multiple fractures of ribs, right side, initial encounter for closed fracture (principal); R31.9 Hematuria, unspecified; W19.XXXA Unspecified fall, initial encounter
CPT/HCPCS: 36415; 71260; 74177; 80053; 81001; 85025; 96361; 96374; 96375; 99284; J1170; J2405; J7030; Q9967

== ENCOUNTER 2024-03-06 07:36 | Day surgery (SDC) | payer OTHER, SELFPAY ==
[2024-02-11 15:13] VITALS: BMI 29.5
[2024-02-21 09:48] VITALS: BMI 29.4
--- NOTE | 2024-03-06 07:40 | WPDANESEPPF ---
Anes - Initial Pre Proc Eval Procedure: Operation Date: 03/06/24 10:00 Proposed Procedures p Screening Colonoscopy - Otoniel Manzo DO Date/Time: 03/06/24 07:40 Surgeon: Otoniel Manzo DO Pre Op Diagnosis: Screening neoplasm of colon Patient Data Age: 48 Gender: M Height: 1.78 m Weight: 93 kg Allergies Allergy/AdvReac Type Severity Reaction Status Date / Time shellfish derived AdvReac Mild Nausea and Verified 03/06/24 08:23 Vomiting Home Medications Medication Instructions Recorded Confirmed Type multivitamin 1 tablet PO DAILY 07/24/21 03/06/24 History finasteride 1 mg tablet 1 mg PO DAILY #90 tabs 12/22/23 03/06/24 Rx magnesium 500 mg tablet 500 mg PO DAILY 02/21/24 03/06/24 History omega-3 fatty acids-vitamin E 1 cap PO DAILY 02/21/24 03/06/24 History 1,000 mg capsule Patient hx anesthesia problems: none Family hx anesthesia problems: none Results Review: All pre-operative results and documents have been reviewed as part of the pre-operative evaluation. [facility] Past Medical History Medical History Alopecia Anxiety Asthma BMI 29.0-29.9,adult Cellulitis of left knee July 2023 Elevated cholesterol with high triglycerides Sleep apnea with use of continuous positive airway pressure (CPAP) Surgical History Surgical History S/P laparoscopic hernia repair umbilical hernia w mesh 09/15/21 Family History Family History Mother Family history of anemia Father Diabetes mellitus Hypertension Sibling No problems noted. Grandparent Carcinoma of colon Other Family history of allergic disorder Social History Social History Social History: The patient lives with his of 17 years they are 3 biological children and 1 foster child. 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 He drinks 2 or 3 alcoholic beverages every couple weeks. He denies any illicit substance use. 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 Spiritual care concerns: No Anes - Eval Final PreProcedure Day of Procedure 03/06/24 07:40 Patient weight: overweight Heart: regular rate and rhythm Lungs: clear to auscultation Airway: Mallampati scale class II Neurological: alert and oriented Last oral intake: >/= 8 hours ASA classification: III Emergent: no Anesthetic plan: proceed Anesthesia type and monitoring: general GIVS and standard monitoring Results Review: All pre-operative results and documents have been reviewed as part of the pre-operative evaluation. Informed Consent: The patient's anesthetic plan and its attendant risks and benefits were discussed with the patient/family/POA. Questions were solicited and answers provided to the satisfaction of the patient/family/POA.
[2024-03-06 08:30] VITALS: BP 128/84; PULSE 70; RESP 18; TEMP 36.4; O2SAT 99; BMI 29.3
[2024-03-06] MEDS: LACTATED RINGERS 1,000 ML 150 ML IV CONT (08:47)
--- NOTE | 2024-03-06 10:21 | PM.IMHP ---
H&P: HPI History of Present Illness Date/Time: 03/06/24 10:21 Chief Complaint: Screening for colorectal cancer Narrative: this is a 48-year-old man who presents for colonoscopy. He has never had a colonoscopy before. He denies any hematochezia or melena. He denies any first-degree relatives with History of colon cancer. Review of Systems Review of Systems: All systems reviewed & are unremarkable except as noted in HPI and below Constitutional: Constitutional: Denies chills, Denies fever(s), Denies headache(s) and Denies weight loss Eyes: Eyes: Denies change in vision ENT: Denies dizziness, Denies headache(s), Denies neck mass and Denies throat swelling Cardiovascular: Cardiovascular: Denies chest pain, Denies lightheadedness and Denies dyspnea Respiratory: Respiratory: Denies cough, Denies dyspnea and Denies wheezing Gastrointestinal: Gastrointestinal: Denies abdominal pain, Denies change in bowel habits, Denies nausea and Denies vomiting Genitourinary: Genitourinary: Denies hematuria and Denies dysuria Musculoskeletal: Musculoskeletal: Reports as per HPI Integumentary/Breasts: Skin/Breast: Reports as per HPI Neurologic: Denies dizziness and Denies headache(s) Allergic/Immunologic: Allergic/Immunologic: Denies throat swelling and Denies wheezing PMFSH Past Medical History Medical History Alopecia Anxiety Asthma BMI 29.0-29.9,adult Cellulitis of left knee July 2023 Elevated cholesterol with high triglycerides Sleep apnea with use of continuous positive airway pressure (CPAP) Surgical History Surgical History S/P laparoscopic hernia repair umbilical hernia w mesh 09/15/21 Family History Family History Mother Family history of anemia Father Diabetes mellitus Hypertension Sibling No problems noted. Grandparent Carcinoma of colon Other Family history of allergic disorder Social History Social History Social History: The patient lives with his of 17 years they are 3 biological children and 1 foster child. 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 He drinks 2 or 3 alcoholic beverages every couple weeks. He denies any illicit substance use. 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 Spiritual care concerns: No Meds Home Medications and Allergies Home Medications Medication Instructions Recorded Confirmed Type multivitamin 1 tablet PO DAILY 07/24/21 03/06/24 History finasteride 1 mg tablet 1 mg PO DAILY #90 tabs 12/22/23 03/06/24 Rx magnesium 500 mg tablet 500 mg PO DAILY 02/21/24 03/06/24 History omega-3 fatty acids-vitamin E 1 cap PO DAILY 02/21/24 03/06/24 History 1,000 mg capsule Allergies Allergy/AdvReac Type Severity Reaction Status Date / Time shellfish derived AdvReac Mild Nausea and Verified 03/06/24 08:23 Vomiting Vital Signs Vital Signs - 24 hr 03/06/24 08:30 Temperature 36.4 C L Pulse Rate 70 Respiratory Rate 18 Blood Pressure 128/84 Pulse Oximetry 99 Oxygen Delivery Room Air Exam Const: General: no acute distr
[2024-03-06 10:50] VITALS: BP 147/102; PULSE 87; RESP 20; O2SAT 97
[2024-03-06 11:00] VITALS: BP 125/86; PULSE 78; RESP 16; O2SAT 98
--- NOTE | 2024-03-06 11:00 | WPDANESPN ---
Anes - Prog Note Post-Op Date/Time: 03/06/24 11:00 Cardiovascular status: normal Respiratory status: normal Airway patency: baseline Mental status: baseline Post-Op hydration status: normal Vital Signs: Last Vital Signs Temp 36.4 C L 03/06/24 08:30 Pulse 87 03/06/24 10:50 Resp 20 03/06/24 10:50 BP 147/102 H 03/06/24 10:50 Pulse Ox 97 03/06/24 10:50 O2 Del Method Room Air 03/06/24 10:50 Pain Score (VAS): 0 I/O: Intake & Output 03/05/24 03/06/24 03/06/24 23:59 07:59 15:59 Intake Total 500 Balance 500 Post-procedural complaints: none Patient Feedback: Patient satisfied with anesthetic care. Other Findings: Patient vital signs back to baseline. Patient denies nausea and vomiting. Patient's pain under control. Patient OK for discharge.
[2024-03-06 11:10] VITALS: BP 127/90; PULSE 66; RESP 14; O2SAT 98
== END 2024-03-06 11:26 | disposition home or self-care (01) ==
PROVIDERS: PCP Family Medicine; Visit Provider Surgery
PROC: 0DJD8ZZ Inspection of Lower Intestinal Tract, Via Natural or Artificial Opening Endoscopic (ICD-10-PCS; CPT 45378; principal; 2024-03-06 10:00)
DX: Z12.11 Encounter for screening for malignant neoplasm of colon (principal)
CPT/HCPCS: 45378

== ENCOUNTER 2024-08-10 16:58 | Outpatient (CLI) | payer OTHER, SELFPAY ==
--- NOTE | ~2024-08-10 | XR_ITS ---
EXAMINATION: XR knee LT 3V DATE: 08/10/2024 17:25 INDICATION: Pain in left lower leg. TECHNIQUE: 3 views of left knee were obtained. COMPARISON: None. FINDINGS: Alignment is normal. No fracture. There is mild osteoarthritis of medial and patellofemoral compartments. No knee joint effusion. IMPRESSION: 1. Mild left knee osteoarthritis. Reviewed, dictated and finalized at location A.
--- NOTE | ~2024-08-10 | XR_ITS ---
EXAMINATION: XR tibia fibula LT 2V DATE: 08/10/2024 17:25 INDICATION: Pain in left lower leg. TECHNIQUE: 2 views of left tibia and fibula were obtained. COMPARISON: None. FINDINGS: Bone alignment is normal. No fracture. There is mild left knee osteoarthritis. IMPRESSION: 1. Mild left knee osteoarthritis. Reviewed, dictated and finalized at location A.
== END 2024-08-10 16:59 | disposition home or self-care (01) ==
LOC: ANHIMG 16:59
PROVIDERS: PCP Family Medicine; Visit Provider Nurse Practitioner Adult Health
DX: M17.12 Unilateral primary osteoarthritis, left knee (principal)
CPT/HCPCS: 73562; 73590

== ENCOUNTER 2025-03-08 12:58 | Outpatient (CLI) | payer OTHER, BC, SELFPAY ==
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
== END 2025-03-08 12:59 | disposition home or self-care (01) ==
PROVIDERS: PCP Family Medicine; Visit Provider Nurse Practitioner Family
DX: M50.323 Other cervical disc degeneration at C6-C7 level (principal); V89.2XXA Person injured in unspecified motor-vehicle accident, traffic, initial encounter
CPT/HCPCS: 72052

== ENCOUNTER 2025-10-18 13:07 | Outpatient (CLI) | payer BC, SELFPAY ==
--- NOTE | 2025-10-18 13:29 | ECG_ITS ---
Test Date: 2025-10-18 13:36:36 Measurements Intervals [place] Rate: 52 P: 1 AL: 165 QRS: 18 QRSD: 109 T: 35 QT: 431 QTc: 402 Interpretive Statements SINUS BRADYCARDIA WITH SINUS ARRHYTHMIA INCOMPLETE RIGHT BUNDLE BRANCH BLOCK BASELINE ARTIFACT- I, III, V3-V4, V6 BORDERLINE ECG No previous ECG available for comparison Electronically Signed On 10-18-2025 13:40:04 [employer] by Hilton Geiger D.O.
--- NOTE | 2025-10-18 13:30 | ECHO_ITS ---
Patient Info Name: Aldair Gay Age: 50 years : 1975 Gender: Male Ht: 71 in Wt: 215 lbs BSA: 2.23 m2 HR: 56 bpm BP: 171 / 104 mmHg Technical Quality: Good Exam Date: 10/18/2025 1:39 PM Patient Status: O Admit Date: 10/18/2025 Exam Type: CA echo doppler color flow Complete two-dimensional, color flow and Doppler transthoracic echocardiogram is performed. Braider Setter: Idania Soto Attending Provider: Tao Campbell Summary 1. Complete two-dimensional, color flow and Doppler transthoracic echocardiogram is performed. 2. Left ventricular chamber dimension is normal. 3. Left ventricular systolic function is normal, estimated at 60-65. 4. The left ventricular diastolic function is normal. 5. E/e' 7 is not elevated. 6. Right atrial chamber dimension is mildly enlarged. 7. There is trace mitral valve regurgitation. 8. No pulmonary hypertension, estimated pulmonary arterial systolic pressure is 34 mmHg. Left Ventricle E/e' 7 is not elevated. Left ventricular chamber dimension is normal. Left ventricular systolic function is normal, estimated at 60-65. The left ventricular diastolic function is normal. Right Ventricle Right ventricular chamber dimension is normal. Right ventricular systolic function is normal and with normal TAPSE 2.8 cm. Left Atria Left atrial chamber dimension is normal. Right Atria Right atrial chamber dimension is mildly enlarged. Aortic Valve The aortic valve is trileaflet. There is no aortic valve stenosis. There is no aortic valve regurgitation. Pulmonic Valve There is no pulmonic regurgitation. Mitral Valve There is no mitral valve stenosis. There is trace mitral valve regurgitation. Tricuspid Valve There is no tricuspid valve regurgitation. No pulmonary hypertension, estimated pulmonary arterial systolic pressure is 34 mmHg. Pericardium/Pleural There is no pericardial effusion. Inferior Vena Cava Normal inferior vena cava with >50% collapse upon inspiration consistent with normal right atrial pressure, 5 mmHg. Aorta The aortic root size at the sinus of Valsalva is normal. Left Ventricular Outflow Tract Name Value Normal LVOT 2D LVOT Diameter 2.2 cm LVOT Doppler LVOT Peak Velocity 96 cm/s LVOT Peak Gradient 4 mmHg LVOT Mean Gradient 2 mmHg LVOT VTI 19 cm LVOT VTI/AV VTI Ratio 0.8 LVOT Stroke Volume 72 ml LVOT CO 4.3 l/min LVOT CI 1.9 l/min/m2 Pulmonic Valve Name Value Normal RVOT Doppler RVOT Peak Velocity 86 cm/s RVOT Peak Gradient 3 mmHg PV Doppler PV Peak Velocity 95 cm/s PV Peak Gradient 4 mmHg Mitral Valve Name Value Normal MV Diastolic Function MV E Peak Velocity 78 cm/s MV A Peak Velocity 72 cm/s MV E/A 1.1 MV Decel Time (PW) 185 ms Tricuspid Valve Name Value Normal TV Regurgitation Doppler TR Peak Velocity 269 cm/s TR Peak Gradient 29 mmHg Estimated PAP/RSVP RA Pressure 5 mmHg <=5 PA Systolic Pressure 34 mmHg <36 RV Systolic Pressure 34 mmHg <36 TV Annular TDI TV Lateral Nettie s' Velocity 12.9 cm/s >=9.5 Aorta Name Value Normal Ascending Aorta Ao Root Diameter (MM) 3.3 cm Ao Root Diam Index (MM) 1.5 cm/m2 Aortic Valve Name Value Normal AV Doppler AV Peak Velocity 119 cm/s AV Peak Gradient 6 mmHg AV Mean Gradient 3 mmHg AV VTI 24 cm AV Area (Cont Eq VTI) 3.0 cm2 >=3.0 AV Area (Cont Eq Patric) 3.0 cm2 AV DI (Patric) 0.80 AV Regurgitation 2D LVOT Area 3.7 cm2 Ventricles Name Value Normal LV Dimensions 2D/MM IVS Diastolic Thickness (2D) 1.0 cm 0.6-1.0 IVS Diastole Thickness (MM) 0.8 cm 0.6-1.0 LVID Diastole (2D) 4.3 cm 4.2-5.8 LVID Diastole (MM) 6.0 cm 4.2-5.8 LVIW Diastolic Thickness (2D) 1.0 cm 0.6-1.0 LVIW Diastolic Thickness (MM) 1.0 cm 0.6-1.0 LVID Systole (2D) 3.1 cm 2.5-4.0 LVID Systole (MM) 3.1 cm 2.5-4.0 LVOT Diameter 2.2 cm LV Mass (2D Cubed) 149.01 g 88.00-224.00 LV Mass Index (2D Cubed) 67 g/m2 49-115 Relative Wall Thickness (2D) 0.47 <=0.42 LV Mass (MM Cubed) 208.37 g 88.00-224.00 LV Mass Index (MM Cubed) 93 g/m2 49-115 Relative Wall Thickness (MM) 0.32 LV Fractional Shortening/Ejection Fraction 2D/MM LV Fractional Shortening (2D) 28 % 25-43 LV Fractional Shortening (MM) 48 % 25-43 LV EF (MM Teichholz) 78 % LV EF (2D Teichholz) 54 % LV Diastolic Volume (4C MOD) 91 ml LV EF (4C MOD) 64 % LV Diastolic Volume (2C MOD) 80 ml LV EF (2C MOD) 60 % LV Diastolic Volume (BP MOD) 85 ml 62-150 LV Diastolic Volume Index (BP MOD) 38 ml/m2 34-74 LV Systolic Volume (BP MOD) 34 ml 21-61 LV Systolic Volume Index (BP MOD) 15 ml/m2 11-31 LV EF (BP MOD) 60 % 52-72 LV Diastolic Length (4C) 9.1 cm LV Systolic Length (4C) 6.3 cm LV Stroke Volume (4C MOD) 58 ml Atria Name Value Normal LA Dimensions LA Dimension (MM) 4.2 cm 3.0-4.0 LA Volume (4C A-L) 50 ml LA Volume (BP A-L) 59 ml RA Dimensions RA Systolic Major Cawood Length (4C) 5.5 cm 2.1-2.7 RA Area (4C) 21.4 cm2 <=18.0 Report Signatures
== END 2025-10-18 13:08 | disposition home or self-care (01) ==
PROVIDERS: PCP Family Medicine
DX: I51.7 Cardiomegaly (principal); I45.10 Unspecified right bundle-branch block; G47.30 Sleep apnea, unspecified; E78.2 Mixed hyperlipidemia
CPT/HCPCS: 93005; 93306